=== PATIENT | male | born 1970 | race Caucasian/White ===

== ENCOUNTER 2018-06-29 03:06 | Emergency (ER) | payer OTHER ==
[~2018-06-29] VITALS: Ht 172.7 cm; Wt 77.1 kg
[~2018-06-29 03:06] MED LIST: ADDERALL 20 MG20 MG PO; CELEXA20 MG PO; MOBIC7.5 MG PO; OMEPRAZOLE 20 M20 M1 PO
[2018-06-29 03:10] VITALS: BP 148/74
[2018-06-29] MEDS ORDERED: NORCO 7.5-3251 EACH PO (03:34)
[2018-06-29] MEDS ORDERED: ERYTHROMYCIN E3.5 G2 OPHTHALMIC (03:34)
== END 2018-06-29 03:44 | disposition home or self-care (01) ==
LOC: M.ERS 03:06
DX: S05.02XA Injury of conjunctiva and corneal abrasion without foreign body, left eye, initial encounter (principal); W22.8XXA Striking against or struck by other objects, initial encounter; Y93.89 Activity, other specified; Y92.89 Other specified places as the place of occurrence of the external cause; Y99.8 Other external cause status